=== PATIENT | male | born 1995 | race Caucasian/White ===

== ENCOUNTER 2018-07-06 05:57 | Emergency (ER) | payer SELFPAY ==
[~2018-07-06] VITALS: Ht 167.6 cm; Wt 76.6 kg
[2018-07-06] MEDS ORDERED: SODIUM CHLORIDE 0.9% 1,000 ML IV ONE ×2 (06:39→10:42)
[2018-07-06] MEDS ORDERED: ONDANSETRON HCL 4MG/2ML INJ IV STA (06:39)
[2018-07-06] MEDS ORDERED: ACETAMINOPHEN 325MG TABLET PO ONE (07:15)
[2018-07-06 07:28] LABS: CHLORIDE 100 mEq/L (98-107)
[2018-07-06 07:33] LABS: ETHANOL BLOOD < 10 mg/dL
[2018-07-06 07:34] LABS: BASOPHILS % 0.3 % (0.0-2.0); EOSINOPHILS % 0.1 % (0.0-5.0); HEMATOCRIT. 48.4 % (42.0-52.0); HEMOGLOBIN. 16.4 g/dL (14.0-18.0); LYMPHOCYTES % 9.8 % (20.0-50.0); MEAN CORPUSCULAR HEMOGLOBIN 27.2 pg (28.0-32.0); MEAN CORPUSCULAR VOLUME 80.3 fL (80.0-94.0); MEAN PLATELET VOLUME 11.1 fl (7.4-10.4); MONOCYTES % 5.8 % (2.0-8.0); PLATELET 146 x1000/uL (130-400); RED BLOOD CELL COUNT 6.03 mill/uL (4.7-6.1); RED CELL DISTRIBUTION WIDTH 21.1 % (11.6-14.6)
[2018-07-06 08:01] LABS: CLARITY URINE CLEAR (CLEAR); COLOR URINE YELLOW (YELLOW); KETONES URINE TRACE (NEGATIVE); LEUKOCYTE ESTERASE URINE NEGATIVE (NEGATIVE); NITRITE URINE NEGATIVE (NEGATIVE); OCCULT BLOOD URINE NEGATIVE (NEGATIVE); PROTEIN URINE NEGATIVE (NEGATIVE); UROBILINOGEN URINE 0.2 E.U./dL (0.2-1.0)
[2018-07-06] MEDS ORDERED: LORAZEPAM 2MG/ML CPJ IM STA ×2 (08:05→10:42)
[2018-07-06] MEDS ORDERED: OLANZAPINE 10 MG/VIAL IM ONE (08:15)
[2018-07-06] MEDS ORDERED: LORAZEPAM 2MG/ML CPJ IV ONE (08:15)
[2018-07-06] MEDS ORDERED: LORAZEPAM 2MG/ML CPJ ONE (08:16)
[2018-07-06 08:18] LABS: *BARBITURATES SCREEN URINE NEGATIVE (NEGATIVE); *BENZODIAZEPINES SCREEN URINE NEGATIVE (NEGATIVE); *COCAINE SCREEN URINE NEGATIVE (NEGATIVE); METHADONE URINE SCREEN NEGATIVE (NEGATIVE); OPIATES URINE SCREEN NEGATIVE (NEGATIVE)
[2018-07-06 08:19] LABS: *AMPHETAMINES SCREEN URINE PRESUMTIVE POSITIVE (NEGATIVE); CANNABINOID URINE SCREEN PRESUMTIVE POSITIVE (NEGATIVE); PHENCYCLIDINE URINE SCREEN NEGATIVE (NEGATIVE)
[2018-07-06 14:30] VITALS: BP 132/76
== END 2018-07-06 14:50 | disposition home or self-care (01) ==
LOC: ER 05:57
DX: F15.188 Other stimulant abuse with other stimulant-induced disorder (principal); F91.8 Other conduct disorders; Z78.1 Physical restraint status; F12.90 Cannabis use, unspecified, uncomplicated; R03.0 Elevated blood-pressure reading, without diagnosis of hypertension; F17.210 Nicotine dependence, cigarettes, uncomplicated
CPT/HCPCS: 36415; 80053; 80305; 80307; 80329; 81003; 83690; 85025; 93005; 96361; 96372; 96374; 99284; G0482; J2060; J2405; J3490; J7030